=== PATIENT | male | born 1960 | race Caucasian/White ===

== ENCOUNTER 2017-04-29 10:46 | Emergency (ER) | payer OTHER ==
[~2017-04-29] VITALS: Wt 54.5 kg
[2017-04-29] MEDS ORDERED: SOD CHLORIDE 0.9% 1,000 ML IV STA (11:10)
[2017-04-29] MEDS ORDERED: morphine 4 MG/ML VIAL IV STA (11:10)
[2017-04-29] MEDS ORDERED: ONDANSETRON 4 MG INJ IV STA (11:10)
[2017-04-29 11:32] LABS: ADD SCAN DIFF NO
[2017-04-29 11:34] LABS: BASOPHIL # 0.1 10^3/ul (0.0-0.1); BASOPHILS % 0.8 % (0.0-2.0); EOSINOPHILS % 0.4 % (0.0-7.0); HEMATOCRIT 41.2 % (42.0-52.0); HEMOGLOBIN 15.3 g/dl (14.0-18.0); LYMPHOCYTES # 2.1 10^3/ul (0.8-2.9); LYMPHOCYTES % 29.4 % (15.0-51.0); MEAN CORPUSCULAR HEMOGLOBIN 35.3 pg (29.0-33.0); MEAN CORPUSCULAR HGB CONC 37.1 g/dl (32.0-37.0); MEAN CORPUSCULAR VOLUME 94.9 fl (82.0-101.0); MEAN PLATELET VOLUME 10.1 fl (7.4-10.4); MONOCYTE # 0.6 10^3/ul (0.3-0.9); MONOCYTES % 7.6 % (0.0-11.0); NEUTROPHIL # 4.4 10^3/ul (1.6-7.5); NEUTROPHILS % 61.4 % (39.0-77.0); PLATELET COUNT 240 10^3/UL (140-415); RED BLOOD COUNT 4.34 10^6/ul (4.70-6.10); RED CELL DISTRIBUTION WIDTH 13.1 % (11.5-14.5); WHITE BLOOD COUNT 7.2 10^3/ul (4.8-10.8)
[2017-04-29 12:00] LABS: ALANINE AMINOTRANSFERASE 87 IU/L (13-69); ALBUMIN 3.4 g/dl (3.3-4.9); ALBUMIN/GLOBULIN RATIO 1.54; ALKALINE PHOSPHATASE 171 IU/L (42-121); ANION GAP 13 (8-16); ASPARTATE AMINO TRANSFERASE 198 IU/L (15-46); BILIRUBIN,INDIRECT 0.2 mg/dl (0-1.1); BILIRUBIN,TOTAL 0.2 mg/dl (0.2-1.3); BLOOD UREA NITROGEN 15 mg/dl (7-20); CALCIUM 8.1 mg/dl (8.4-10.2); CARBON DIOXIDE 20 mmol/L (21-31); CHLORIDE 103 mmol/L (97-110); CREATININE 0.74 mg/dl (0.61-1.24); GLUCOSE 395 mg/dl (70-220); POTASSIUM 4.4 mmol/L (3.5-5.1); SODIUM 132 mmol/L (135-144); TOTAL PROTEIN 5.6 g/dl (6.1-8.1)
[2017-04-29] MEDS ORDERED: INSULIN LISPRO 100 UNIT/ML VIAL SC STA (12:10)
[2017-04-29 12:13] LABS: TROPONIN-I < 0.012 ng/ml (0.00-0.12)
[2017-04-29 13:02] VITALS: BP 138/73; PULSE 73; RESP 20
--- NOTE | 2017-04-29 13:36 | RADRPT ---
PROCEDURE: US Abdomen CLINICAL INDICATION: Abdominal Pain TECHNIQUE: Multiple real-time images were acquired of the patient's abdomen and retroperitoneum ut ilizing a high resolution transducer. COMPARISON: None FINDINGS: The liver measures 15.8 cm and demonstrates moderately increased echogenicity as well as coarsened e chotexture. There is no intrahepatic biliary ductal dilatation. The extrahepatic common bile duct me asures 3 mm. The main portal vein is patent with proper directional flow. The gallbladder is without stones, wall thickening, or pericholecystic fluid. The visualized pancreas is unremarkable. The right kidney measures 9.4 x 4.3 x 5.2 cm. There are no right renal calculi or hydronephrosis. The visualized abdominal aorta and IVC are grossly unremarkable. IMPRESSION: The liver demonstrates increased echogenicity as well as coarsened echotexture which are nonspecific , but can be seen with moderate fatty infiltration as well as early chronic liver disease. No defin ite morphologic changes of cirrhosis are identified. The main portal vein is patent with proper dir ectional flow. No cholelithiasis or acute cholecystitis. Normal CBD. RPTAT: EE Physician Olive Date Time Electronically viewed and signed by Physician Olive on 04/29/2017 13:35 /
[2017-04-29] MEDS ORDERED: HYDR-902 PO (13:54)
[2017-04-29] MEDS ORDERED: ONDA4TAB14 PO (13:54)
--- NOTE | 2017-04-29 14:08 | ERD ---
ER Documentation Chief Complaint Date/Time DATE: 04/29/17 TIME: 14:06 Chief Complaint WEAKNESS, DECREASED APPETITE, HX OF DM HPI Patient is a 56-year-old male with diabetes who presents with abdominal pain. He has not eaten for the past 4 days and feels weak. He is able to drink. He has right upper quadrant abdominal pain. He felt like he was having trouble swallowing. He did eat this morning and had a normal bowel movement yesterday. He does not currently have a primary doctor. Upon review of old medical records this is the patient's first visit to the emergency department. ROS All systems reviewed and are negative except as per history of present illness. Medications Home Meds Active Scripts Ondansetron (Ondansetron Odt) 4 Mg Tab.rapdis, 4 MG PO Q6H Y for NAUSEA AND/OR VOMITING, #10 TAB Prov:PRUDENCE CASEY MD 04/29/17 Hydrocodone/Acetaminophen (Ross 10-325 Tablet) 1 Each Tablet, 1 TAB PO Q6H Y for PAIN, #7 TAB Prov:PRUDENCE CASEY MD 04/29/17 Allergies Allergies: Coded Allergies: No Known Drug Allergies (Verified Allergy, Unknown, 04/29/17) PMhx/Soc Medical and Surgical Hx: pt denies Medical Hx, pt denies Surgical Hx History of Surgery: No Anesthesia Reaction: No Hx Neurological Disorder: No Hx Respiratory Disorders: No Hx Cardiac Disorders: No Hx Psychiatric Problems: No Hx Miscellaneous Medical Probl: No Hx Alcohol Use: Yes Hx Substance Use: Yes Hx Tobacco Use: Yes Smoking Status: Current every day smoker FmHx Family History: diabetes Physical Exam Vitals Vital Signs Date Time Temp Pulse Resp B/P Pulse Ox O2 Delivery O2 Flow Rate FiO2 04/29/17 13:02 73 20 138/73 100 Room Air 04/29/17 10:51 98.4 97 18 121/84 99 Physical Exam Const: No acute distress Head: Atraumatic Eyes: Normal Conjunctiva ENT: Normal External Ears, Nose and Mouth. Neck: Full range of motion..~ No meningismus. No stridor over the neck Resp: Clear to auscultation bilaterally Cardio: Regular rate and rhythm, no murmurs Abd: Soft, right upper quadrant tenderness to palpation without rebound or guarding Skin: No petechiae or rashes Back: No midline or flank tenderness Ext: No cyanosis, or edema Neur: Awake and alert Psych: Normal Mood and Affect Result Diagram: 04/29/17 1110 04/29/17 1110 Results 24 hrs Laboratory Tests Test 04/29/17 11:10 White Blood Count 7.210^3/ul Red Blood Count 4.3410^6/ul Hemoglobin 15.3g/dl Hematocrit 41.2% Mean Corpuscular Volume 94.9fl Mean Corpuscular Hemoglobin 35.3pg Mean Corpuscular Hemoglobin Concent 37.1g/dl Red Cell Distribution Width 13.1% Platelet Count 62336^3/UL Mean Platelet Volume 10.1fl Neutrophils % 61.4% Lymphocytes % 29.4% Monocytes % 7.6% Eosinophils % 0.4% Basophils % 0.8% Nucleated Red Blood Cells % 0.0/100WBC Neutrophils # 4.410^3/ul Lymphocytes # 2.110^3/ul Monocytes # 0.610^3/ul Eosinophils # 0.010^3/ul Basophils # 0.110^3/ul Nucleated Red Blood Cells # 0.010^3/ul Sodium Level 132mmol/L Potassium Level 4.4mmol/L Chloride Level 103mmol/L Carbon Dioxide Level 20mmol/L Anion Gap 13 Blood Urea Nitrogen 15mg/dl Creatinine 0.74mg/dl Glucose Level 395mg/dl Calcium Level 8.1mg/dl Total Bilirubin 0.2mg/dl Direct Bilirubin 0.00mg/dl Indirect Bilirubin 0.2mg/dl Aspartate Amino Transf (AST/SGOT) 198IU/L Alanine Aminotransferase (ALT/SGPT) 87IU/L Alkaline Phosphatase 171IU/L Troponin I < 0.012ng/ml Total Protein 5.6g/dl Albumin 3.4g/dl Globulin 2.20g/dl Albumin/Globulin Ratio 1.54 Lipase 280U/L Current Medications Medications (Trade) Dose Ordered Sig/Bashir Route PRN Reason Start Time Stop Time Status Last Admin Dose Admin Sodium Chloride (NS) 1,000 ml @ 1,000 mls/hr Q1H STAT IV 04/29/17 11:10 04/29/17 12:09 DC 04/29/17 11:28 Morphine Sulfate (morphine) 4 mg ONCE STAT IV 04/29/17 11:10 04/29/17 11:12 DC 04/29/17 11:25 Ondansetron HCl (Zofran Inj) 4 mg ONCE STAT IV 04/29/17 11:10 04/29/17 11:12 DC 04/29/17 11:24 Insulin Human Lispro (Humalog) 10 unit ONCE STAT SC 04/29/17 12:10 04/29/17 12:11 DC 04/29/17 12:42 Procedures/MDM Ultrasound shows no obvious abnormality as per radiology. Patient is a 56-year-old male with diabetes who presents with right upper quadrant abdominal pain. His ultrasound shows no obvious signs of cholecystitis or dilation of the common bile duct. White blood cell count was normal. The patient has hyperglycemia but no signs of diabetic ketoacidosis. He was given 1 L of normal saline as well as 10 units of subcutaneous Humalog. The patient will be discharged home and can follow-up with the local clinics within 24-48 hours for reevaluation. At this point I doubt obvious esophageal obstruction, cholecystitis, pancreatitis, appendicitis, or bowel obstruction. I believe outpatient management is appropriate. The patient will be given a prescription for Ross and Zofran for systematic relief. Departure Diagnosis: Primary Impression: Abdominal pain Abdominal location: unspecified location Qualified Code: R10.9 - Abdominal pain, unspecified location Condition: Fair Patient Instructions: Abdominal Pain Referrals: [facility] [place] hecho un examen mdico de control que le indica que no est en sierra condicin que requiera tratamiento urgente en el Departamento de Emergencia. Un estudio ms profundo y el tratamiento de yang condicin pueden esperar sin ningn riesgo hasta que usted sea atendida/o en el consultorio de yang mdico o sierra cl anupama. Es responsabilidad suya arreglar sierra cliff para el seguimiento del corazon. MANEJO DE CONDICIONES NO URGENTES EN EL FUTURO 1) Si usted tiene un mdico de atencin primaria: Usted debera llamar a yang mdico de atencin primaria antes de venir al departamento de emergencia. Despus de las horas de consultorio, yang doctor o yang asociado/a est disponible por telfono. El mdico o enfermero de bib en el servicio telefnico puede asesorarle por kait medio para atender el problema, o corazon contrario se puede programar sierra cliff. 2) Si usted no tiene un mdico de atencin primaria: Llame al mdico o clnica de referencia que aparece abajo zahra las horas de consultorio para hacer sierra cliff para que le vean. CLINICAS: [facility] [phone] [facility] [phone] [facility] [phone] [place] [phone] [place] [phone] [facility] [phone] [address] Additional Instructions: Llame al doctor MAANA y trevor sierra CLIFF PARA DENTRO DE 1-2 WORRELL.Dgale a la secretaria que nosotros le instruimos hacer esta cliff.Avise o llame si yang condicin se empeora antes de la cliff. Regresa aqui si peor o no mejor. PRUDENCE CASEY MD Apr 29, 2017 14:08
== END 2017-04-29 14:22 | disposition home or self-care (01) ==
LOC: E/R 10:46
DX: R10.11 Right upper quadrant pain (principal); E11.9 Type 2 diabetes mellitus without complications; F17.210 Nicotine dependence, cigarettes, uncomplicated
CPT/HCPCS: 76705; 80053; 82962; 83690; 84484; 85025; 93005; J1815; J2270; J2405; J7030; Z7610; 36415; 96361; 96372; 96374; 96375

== ENCOUNTER 2017-05-06 11:11 | Emergency (ER) | payer OTHER ==
[~2017-05-06] VITALS: Ht 165.1 cm; Wt 56.8 kg
[~2017-05-06 11:11] MED LIST: HYDR-902 PO; ONDA4TAB14 PO
[2017-05-06 11:15] VITALS: Ht 165.1 cm; Wt 56.8 kg
[2017-05-06] MEDS ORDERED: SOD CHLORIDE 0.9% 1,000 ML IV STA (11:19)
[2017-05-06 11:49] LABS: ADD SCAN DIFF NO
[2017-05-06 11:52] LABS: BASOPHIL # 0.1 10^3/ul (0.0-0.1); BASOPHILS % 0.7 % (0.0-2.0); EOSINOPHILS # 0.1 10^3/ul (0.0-0.5); EOSINOPHILS % 0.8 % (0.0-7.0); HEMATOCRIT 42.1 % (42.0-52.0); HEMOGLOBIN 14.5 g/dl (14.0-18.0); LYMPHOCYTES # 2.3 10^3/ul (0.8-2.9); LYMPHOCYTES % 26.8 % (15.0-51.0); MEAN CORPUSCULAR HEMOGLOBIN 33.5 pg (29.0-33.0); MEAN CORPUSCULAR HGB CONC 34.4 g/dl (32.0-37.0); MEAN CORPUSCULAR VOLUME 97.2 fl (82.0-101.0); MEAN PLATELET VOLUME 10.3 fl (7.4-10.4); MONOCYTE # 0.6 10^3/ul (0.3-0.9); MONOCYTES % 6.8 % (0.0-11.0); NEUTROPHIL # 5.6 10^3/ul (1.6-7.5); NEUTROPHILS % 64.4 % (39.0-77.0); PLATELET COUNT 276 10^3/UL (140-415); RED BLOOD COUNT 4.33 10^6/ul (4.70-6.10); RED CELL DISTRIBUTION WIDTH 13.7 % (11.5-14.5); WHITE BLOOD COUNT 8.7 10^3/ul (4.8-10.8)
--- NOTE | 2017-05-06 11:58 | RADRPT ---
PROCEDURE: XR Chest. CLINICAL INDICATION: Syncope TECHNIQUE: Single frontal chest x-ray. COMPARISON: None. FINDINGS: The lungs are adequately expanded and clear. There is no focal consolidation, pleural effusion, or pneumothorax. The heart and mediastinal contours are unremarkable. Bones are unremarkable. There a re no acute fractures. There is eventration of the right hemidiaphragm. RPTAT: QQ IMPRESSION: No acute cardiopulmonary abnormality. .Paula Bolivar MD, MD Date Time Electronically viewed and signed by .Paula Bolivar MD, MD on 05/06/2017 11:58 .T/
--- NOTE | 2017-05-06 12:01 | RADRPT ---
PROCEDURE: CT Brain without contrast. CLINICAL INDICATION: Syncope TECHNIQUE: CT scan of the brain was performed on a multidetector high-resolution CT scan. Axial im aging was obtained of the brain without contrast administration. Coronal and sagittal reformatted i mages were obtained from the axial source images. Standard CT scan of the head without contrast prot ocols were performed. The total exam CTDI equals 44.52 mGy and the total exam DLP equals 630.2 mGy-cm. One or more of the following dose reduction techniques were used: - Automated exposure control. - Adjustment of the mA and/or kV according to patient size. Use of iterative reconstruction technique. COMPARISON: None. FINDINGS: The ventricular system and peripheral CSF spaces are proportionate prominent consistent with modera te generalized cerebral volume loss. Negative for intracranial masses hemorrhages or midline shift. There is bibasilar ganglion idiopathic calcifications. There is mild periventricular deep white ma tter changes that is nonspecific and consistent with chronic microvascular ischemic disease. the gra y-white matter junction is unremarkable. The paranasal sinuses visualized are unremarkable. Mastoid s visualized are unremarkable. The bones and calvarium are intact. IMPRESSION: 1. Moderate generalized cerebral volume loss. 2. Mild nonspecific chronic microvascular ischemic disease. 3. Negative for intracranial masses hemorrhages or midline shift. RPTAT:AAJJ Physician Melquiades Date Time Electronically viewed and signed by Physician Melquiades on 05/06/2017 12:01 BM/
[2017-05-06 12:06] LABS: INR 1.3; PROTIME 16.3 Sec (12.2-14.2); PT RATIO 1.3
[2017-05-06 12:07] LABS: ANION GAP 13 (8-16); CALCIUM 7.7 mg/dl (8.4-10.2); CARBON DIOXIDE 24 mmol/L (21-31); CHLORIDE 103 mmol/L (97-110); GLUCOSE 362 mg/dl (70-220); PARTIAL THROMBOPLASTIN TIME 28.6 Sec (25.0-35.0); POTASSIUM 3.8 mmol/L (3.5-5.1); SODIUM 136 mmol/L (135-144)
[2017-05-06 12:08] LABS: BLOOD UREA NITROGEN 14 mg/dl (7-20)
[2017-05-06 12:28] VITALS: BP 113/78; PULSE 82; RESP 19
[2017-05-06 12:35] LABS: TROPONIN-I < 0.012 ng/ml (0.00-0.12)
[2017-05-06] MEDS ORDERED: SOD CHLORIDE 0.9% 1,000 ML IV ONE (12:35)
--- NOTE | 2017-05-06 12:46 | ERD ---
ER Documentation Chief Complaint Date/Time DATE: 05/06/17 TIME: 12:39 Chief Complaint syncopal epidose; increased blood sugar level HPI 56-year-old male with a history of diabetes not on any medications presenting by ambulance after a syncopal event at his daughter's apartment. He states he stood up to go to the bathroom and felt dizzy. The next thing he remembers is waking up and seeing his and his daughter looking over him. Per witnesses , he had no significant fall or head injury. In the field, his blood sugar was elevated. Vitals were normal. Patient currently complains of mild dizziness, nausea and just generalized weakness. However he denies any shortness of breath , chest pain, vision disturbance, headache, vomiting, fever, or chills. He has not been drinking alcohol today but he admits to drinking last night. He denies any focal weakness or numbness. There was no urinary incontinence. There is no reports of seizure-like activity. I asked the patient why he is not taking any medications for his diabetes and he states that it does not make him feel well. ROS All systems reviewed and are negative except as per history of present illness. Medications Home Meds Active Scripts Metformin* (Glucophage*) 500 Mg Tab, 500 MG PO BID, #30 TAB Prov:RICHAR TAN MD 05/06/17 Discontinued Scripts Ondansetron (Ondansetron Odt) 4 Mg Tab.rapdis, 4 MG PO Q6H Y for NAUSEA AND/OR VOMITING, #10 TAB Prov:PRUDENCE CASEY MD 04/29/17 Hydrocodone/Acetaminophen ([place] 10-325 Tablet) 1 Each Tablet, 1 TAB PO Q6H Y for PAIN, #7 TAB Prov:PRUDENCE CASEY MD 04/29/17 Allergies Allergies: Coded Allergies: No Known Drug Allergies (Verified Allergy, Unknown, 05/06/17) PMhx/Soc Medical and Surgical Hx: pt denies Medical Hx, pt denies Surgical Hx History of Surgery: No Anesthesia Reaction: No Hx Neurological Disorder: No Hx Respiratory Disorders: No Hx Cardiac Disorders: No Hx Psychiatric Problems: No Hx Miscellaneous Medical Probl: Yes (Diabetes) Hx Alcohol Use: Yes (4 beers per day) Hx Substance Use: No Hx Tobacco Use: Yes Smoking Status: Current every day smoker FmHx Family History: No diabetes Physical Exam Vitals Vital Signs Date Time Temp Pulse Resp B/P Pulse Ox O2 Delivery O2 Flow Rate FiO2 05/06/17 12:28 82 19 113/78 100 Room Air 05/06/17 11:15 98.3 75 19 128/86 99 Physical Exam Const: Well-appearing, well-nourished, no distress Head: Atraumatic Eyes: Normal Conjunctiva, PERRLA, EOMI ENT: Dry mucous membranes Neck: Full range of motion. No meningismus. Resp: Clear to auscultation bilaterally Cardio: Regular rate and rhythm, no murmurs Abd: Soft, non tender, non distended. Normal bowel sounds Skin: No petechiae or rashes Back: No midline or flank tenderness Ext: No cyanosis, or edema Neur: Awake and alert and oriented 3, cranial nerves intact, strength and sensations intact in all 4 extremities, normal gait, normal cerebellar exam Psych: Normal Mood and Affect Result Diagram: 05/06/17 1120 05/06/17 1120 Results 24 hrs Laboratory Tests Test 05/06/17 11:20 05/06/17 11:35 05/06/17 13:11 05/06/17 13:39 White Blood Count 8.710^3/ul Red Blood Count 4.3310^6/ul Hemoglobin 14.5g/dl Hematocrit 42.1% Mean Corpuscular Volume 97.2fl Mean Corpuscular Hemoglobin 33.5pg Mean Corpuscular Hemoglobin Concent 34.4g/dl Red Cell Distribution Width 13.7% Platelet Count 65173^3/UL Mean Platelet Volume 10.3fl Neutrophils % 64.4% Lymphocytes % 26.8% Monocytes % 6.8% Eosinophils % 0.8% Basophils % 0.7% Nucleated Red Blood Cells % 0.0/100WBC Neutrophils # 5.610^3/ul Lymphocytes # 2.310^3/ul Monocytes # 0.610^3/ul Eosinophils # 0.110^3/ul Basophils # 0.110^3/ul Nucleated Red Blood Cells # 0.010^3/ul Prothrombin Time 16.3Sec Prothrombin Time Ratio 1.3 INR International Normalized Ratio 1.30 Activated Partial Thromboplast Time 28.6Sec Sodium Level 136mmol/L Potassium Level 3.8mmol/L Chloride Level 103mmol/L Carbon Dioxide Level 24mmol/L Anion Gap 13 Blood Urea Nitrogen 14mg/dl Creatinine 0.80mg/dl Glucose Level 362mg/dl Calcium Level 7.7mg/dl Troponin I < 0.012ng/ml Bedside Glucose 341mg/dL 349mg/dL Urine Color YELLOW Urine Clarity CLEAR Urine pH 5.0 Urine Specific [place] 1.017 Urine Ketones NEGATIVEmg/dL Urine Nitrite NEGATIVEmg/dL Urine Bilirubin NEGATIVEmg/dL Urine Urobilinogen NEGATIVEmg/dL Urine Leukocyte Esterase NEGATIVELeu/ul Urine Hemoglobin NEGATIVEmg/dL Urine Glucose 3+mg/dL Urine Total Protein NEGATIVEmg/dl Current Medications Medications (Trade) Dose Ordered Sig/Bashir Route PRN Reason Start Time Stop Time Status Last Admin Dose Admin Sodium Chloride 1,000 ml @ 1,000 mls/hr Q1H STAT IV 05/06/17 11:19 05/06/17 12:18 DC 05/06/17 11:28 Sodium Chloride (NS) 1,000 ml @ 1,000 mls/hr Q1H ONCE IV 05/06/17 12:35 05/06/17 13:34 DC 05/06/17 12:48 Procedures/MDM EKG: Rate/Rhythm: Normal Sinus Rhythm QRS, ST, T-waves: Right bundle branch block Impression: No evidence of ischemia or arrhythmia CT head shows no acute abnormalities Chest x-ray shows no acute abnormalities MDM The patients vitals are within normal limits and labs are unremarkable. The ECG did not show any concerning abnormalities. I have a low suspicion for an arrhythmia, acute coronary syndrome, PE or a CVA or intracranial hemorrhage. Etiology for syncope is likely due to dehydration with hyperglycemia. 2 L of IV fluids were given. Subsequently, he was ambulating with a steady gait with no dizziness patient's syncopal symptoms have stabilized while in the department and are suitable for outpatient follow up. I advised follow up with primary care physician in 1-2 days. I also counseled him on the importance of treating his diabetes. Return precautions were discussed at bedside. Departure Diagnosis: Primary Impression: Syncope Syncope type: unspecified Qualified Code: R55 - Syncope, unspecified syncope type Additional Impression: Hyperglycemia due to type 2 diabetes mellitus Diabetes mellitus mcfp insulin use: without intermediate frame tender use Qualified Code : E11.65 - Type 2 diabetes mellitus with hyperglycemia, without long-term current use of insulin Condition: Stable EKRICHAR COLVIN MD 4, 2017 12:46
[2017-05-06] MEDS ORDERED: METF500T4 PO (12:47)
[2017-05-06 13:32] LABS: ADD UMIC NO; UR ASCORBIC ACID NEGATIVE (NEGATIVE); UR BILIRUBIN (Dip) NEGATIVE (NEGATIVE); UR BLOOD (Dip) NEGATIVE (NEGATIVE); UR CLARITY CLEAR (CLEAR); UR COLOR YELLOW (YELLOW); UR GLUCOSE (Dip) 3+ mg/dL (NEGATIVE); UR KETONES (Dip) NEGATIVE (NEGATIVE); UR LEUKOCYTE ESTERASE (Dip) NEGATIVE Leu/ul (NEGATIVE); UR NITRITE (Dip) NEGATIVE (NEGATIVE); UR SPECIFIC GRAVITY (Dip) 1.017 (1.003-1.030); UR TOTAL PROTEIN (Dip) NEGATIVE (NEGATIVE); UR UROBILINOGEN (Dip) NEGATIVE (NEGATIVE)
== END 2017-05-06 14:43 | disposition home or self-care (01) ==
LOC: E/R 11:11
DX: R55 Syncope and collapse (principal); E11.65 Type 2 diabetes mellitus with hyperglycemia; F17.210 Nicotine dependence, cigarettes, uncomplicated; Z79.84 Long term (current) use of oral hypoglycemic drugs
CPT/HCPCS: 70450; 71010; 80048; 81003; 82962; 84484; 85025; 85610; 85730; 93005; J7030; 36415

== ENCOUNTER 2017-06-15 11:57 | Emergency (ER) | END 2017-06-15 14:37 | disposition home or self-care (01) | DX: R73.9 Hyperglycemia, unspecified (principal); R55 Syncope and collapse; E86.0 Dehydration; Z79.84 Long term (current) use of oral hypoglycemic drugs; Z91.14 Patient's other noncompliance with medication regimen | CPT/HCPCS: 36415; 80048; 80306; 81003; 82803; 82962; 84484; 85025; 93005; J7030; Z7502 ==